=== PATIENT | male | born 1955 | race Caucasian/White ===

== ENCOUNTER 2021-10-28 09:28 | Emergency (ER) | payer MEDICARE, MEDICAID ==
[~2021-10-28] VITALS: Ht 175.3 cm; Wt 57.0 kg
[~2021-10-28 09:28] MED LIST: CHLO100T31 PO; CHOL100018 PO; CITA-144 PO; HYDR28.35 TP; PALI156D IM
[2021-10-28 10:03] LABS: BASOPHILS % (AUTO) 0.5 % (0.0-2.0); EOSINOPHILS % (AUTO) 2.5 % (1.0-6.0); HEMATOCRIT 36.4 % (41-53); HEMOGLOBIN 12.5 g/dL (13.5-17.5); LYMPHOCYTES # (AUTO) 0.9 K/uL (1.0-4.8); LYMPHOCYTES % (AUTO) 15.4 % (22.0-44.0); MEAN CORPUSCULAR HEMOGLOBIN 30.3 pg (26.0-34.0); MEAN CORPUSCULAR HGB CONC 34.2 G/dL (31.0-37.0); MEAN CORPUSCULAR VOLUME 89 fL (80-100); MONOCYTES # (AUTO) 0.6 K/uL (0.1-1.0); MONOCYTES % (AUTO) 10.6 % (2.0-9.0); NEUTROPHILS # (AUTO) 4.3 K/uL (1.8-7.7); PLATELET COUNT (AUTO) 407 K/uL (150-450); RED BLOOD CELL COUNT(AUTO) 4.12 MIL/uL (4.50-5.90); RED CELL DISTRIBUTION WIDTH 15.7 % (11.5-14.5)
[2021-10-28 10:22] LABS: ANION GAP 3 mmol/L (8-16); CARBON DIOXIDE 32 mmol/L (22-29); CHLORIDE 96 mmol/L (98-107); CREATININE 0.55 mg/dL (0.60-1.30); GLUCOSE,RANDOM 72 mg/dL (70-110); POTASSIUM 4.2 mmol/L (3.5-5.1); SODIUM SERUM 131 mmol/L (136-145); UREA NITROGEN, BLOOD 13 mg/dL (7-18)
[2021-10-28 10:24] LABS: GLOMERULAR FILTR. RATE CALC > 60 mL/min (>60)
[2021-10-28 10:28] LABS: ALANINE AMINOTRANSFERASE 32 U/L (12-78); ALBUMIN 2.9 g/dL (3.4-5.0); ALKALINE PHOSPHATASE 161 U/L (46-116); ASPARTATE AMINOTRANSFERASE 20 U/L (15-37); BILIRUBIN,TOTAL 0.3 mg/dL (0.1-1.0); TOTAL PROTEIN, SERUM 7.5 g/dL (6.4-8.2)
[2021-10-28 10:47] LABS: APPEARANCE,URINE CLEAR (CLEAR); BILIRUBIN,URINE NEGATIVE (NEGATIVE); GLUCOSE, URINE (UA) NEGATIVE (NEGATIVE); KETONES,URINE NEGATIVE (NEGATIVE); LEUKOCYTE ESTERASE ,URINE NEGATIVE (NEGATIVE); NITRATE,URINE NEGATIVE (NEGATIVE); OCCULT BLOOD,URINE NEGATIVE (NEGATIVE); PROTEIN,URINE NEGATIVE (NEGATIVE); UROBILINOGEN,URINE 0.2 mg/dL (<=1.0)
[2021-10-28] MEDS ORDERED: LORazepam 2 MG TABLET PO ONE (11:00)
[2021-10-28 11:50] LABS: AMPHET/METH SCREEN,URINE NEGATIVE (NEGATIVE); BARBITURATE SCREEN, URINE NEGATIVE (NEGATIVE); BENZODIAZEPINES SCREEN,URINE NEGATIVE (NEGATIVE); CANNABINOID SCREEN,URINE NEGATIVE (NEGATIVE); COCAINE SCREEN,URINE NEGATIVE (NEGATIVE); METHADONE SCREEN, URINE NEGATIVE (NEGATIVE); OPIATE SCREEN,URINE NEGATIVE (NEGATIVE)
[2021-10-28 11:51] LABS: PHENCYCLIDINE SCREEN,URINE NEGATIVE (NEGATIVE)
[2021-10-28 12:09] LABS: BACTERIA,URINE None Seen /HPF (None Seen); RBC,URINE None Seen /HPF (0-2); WBC,URINE None Seen /HPF (0-5)
[2021-10-28 13:53] VITALS: BP 127/68
== END 2021-10-28 14:43 | disposition home or self-care (01) ==
LOC: EMS 09:46
DX: F25.9 Schizoaffective disorder, unspecified (principal); R45.1 Restlessness and agitation; I10 Essential (primary) hypertension; F17.210 Nicotine dependence, cigarettes, uncomplicated; Z79.899 Other long term (current) drug therapy
CPT/HCPCS: 36415; 80053; 80307; 81001; 85025; 99284; G0480

== ENCOUNTER 2024-01-18 17:28 | Emergency (ER) | payer MEDICARE, MEDICAID ==
[~2024-01-18] VITALS: Ht 172.7 cm; Wt 65.9 kg
[~2024-01-18 17:28] MED LIST changes: -CHLO100T31 PO; +CHLO100T42 PO; -CHOL100018 PO; +CHOL25TA4 PO
[2024-01-18] MEDS ORDERED: LITH450CRT PO (18:06)
[2024-01-18] MEDS ORDERED: QUET25TA36 PO (18:06)
[2024-01-18] MEDS ORDERED: LEVO25TA9 PO (18:06)
[2024-01-18] MEDS ORDERED: LACT10SO10 PO (18:06)
[2024-01-18] MEDS ORDERED: OLAN20TA20 PO (18:06)
[2024-01-18] MEDS ORDERED: LUMA42CA PO (18:06)
[2024-01-18] MEDS ORDERED: CLON0.5T4 PO (18:06)
[2024-01-18] MEDS ORDERED: VALP250S27 PO (18:06)
[2024-01-18] MEDS ORDERED: LISI10TA24 PO (18:06)
[2024-01-18 18:09] VITALS: TEMP 97.7
[2024-01-18 18:58] LABS: ALCOHOL, URINE DRUG SCREEN NEGATIVE (NEGATIVE); AMPHET/METH SCREEN,URINE NEGATIVE (NEGATIVE); APPEARANCE,URINE CLEAR (CLEAR); BARBITURATE SCREEN, URINE NEGATIVE (NEGATIVE); BENZODIAZEPINES SCREEN,URINE NEGATIVE (NEGATIVE); BILIRUBIN,URINE NEGATIVE (NEGATIVE); CANNABINOID SCREEN,URINE NEGATIVE (NEGATIVE); COCAINE SCREEN,URINE NEGATIVE (NEGATIVE); COLOR,URINE LIGHT YELLOW (YELLOW); GLUCOSE, URINE (UA) NEGATIVE (NEGATIVE); KETONES,URINE NEGATIVE (NEGATIVE); LEUKOCYTE ESTERASE ,URINE NEGATIVE (NEGATIVE); METHADONE SCREEN, URINE NEGATIVE (NEGATIVE); NITRATE,URINE NEGATIVE (NEGATIVE); OCCULT BLOOD,URINE NEGATIVE (NEGATIVE); OPIATE SCREEN,URINE NEGATIVE (NEGATIVE); PH,URINE 7.5 (5.0-8.0); PHENCYCLIDINE SCREEN,URINE NEGATIVE (NEGATIVE); PROTEIN,URINE NEGATIVE (NEGATIVE); SPECIFIC GRAVITIY, URINE 1.009 (1.003-1.030); UROBILINOGEN,URINE <=1.0 mg/dL (<=1.0)
[2024-01-18 19:10] LABS: PH,URINE DRUG SCREEN 7.5 (5.0-8.0)
[2024-01-18 19:21] LABS: COVID AG,FIA SOURCE NASAL SWAB
[2024-01-18 19:44] LABS: SARS-COV2 (COVID) ANTIGEN,FIA Negative (Negative)
[2024-01-18 20:36] LABS: BASOPHILS % (AUTO) 0.2 % (0.0-2.0); EOSINOPHILS % (AUTO) 4.2 % (1.0-6.0); HEMATOCRIT 41.1 % (41-53); HEMOGLOBIN 13.5 g/dL (13.5-17.5); LYMPHOCYTES # (AUTO) 1.3 K/uL (1.0-4.8); LYMPHOCYTES % (AUTO) 19.6 % (22.0-44.0); MEAN CORPUSCULAR HEMOGLOBIN 31.5 pg (26.0-34.0); MEAN CORPUSCULAR HGB CONC 32.8 G/dL (31.0-37.0); MEAN CORPUSCULAR VOLUME 96 fL (80-100); MONOCYTES # (AUTO) 0.5 K/uL (0.1-1.0); MONOCYTES % (AUTO) 7.1 % (2.0-9.0); NEUTROPHILS # (AUTO) 4.6 K/uL (1.8-7.7); NEUTROPHILS % (AUTO) 68.9 % (40.0-70.0); PLATELET COUNT (AUTO) 164 K/uL (150-450); RED BLOOD CELL COUNT(AUTO) 4.28 MIL/uL (4.50-5.90); RED CELL DISTRIBUTION WIDTH 14.1 % (11.5-14.5); WHITE BLOOD COUNT (AUTO) 6.7 K/uL (4.5-11.0)
[2024-01-18 20:44] LABS: ANION GAP 6 mmol/L (8-16); CALCIUM, TOTAL 9.3 mg/dL (8.8-10.5); CARBON DIOXIDE 29 mmol/L (22-29); CHLORIDE 102 mmol/L (98-107); GLOMERULAR FILTR. RATE CALC > 60 mL/min (>60); GLUCOSE,RANDOM 92 mg/dL (70-110); POTASSIUM 4.2 mmol/L (3.5-5.1); SODIUM SERUM 137 mmol/L (136-145); UREA NITROGEN, BLOOD 6 mg/dL (7-18)
[2024-01-18 20:50] LABS: ALANINE AMINOTRANSFERASE 19 U/L (12-78); ALBUMIN 3.3 g/dL (3.4-5.0); ALKALINE PHOSPHATASE 100 U/L (46-116); ASPARTATE AMINOTRANSFERASE 21 U/L (15-37); BILIRUBIN,TOTAL 0.3 mg/dL (0.1-1.0); TOTAL PROTEIN, SERUM 7.5 g/dL (6.4-8.2)
[2024-01-18 20:57] LABS: ALCOHOL, BLOOD (SERUM) < 3 mg/dL (0-10)
[2024-01-18 21:53] VITALS: BP 154/79; PULSE 84; RESP 16
== END 2024-01-18 23:15 | disposition home or self-care (01) ==
LOC: EMS 17:28
DX: F69 Unspecified disorder of adult personality and behavior (principal); R45.1 Restlessness and agitation; F41.9 Anxiety disorder, unspecified; I10 Essential (primary) hypertension; F20.9 Schizophrenia, unspecified; F17.210 Nicotine dependence, cigarettes, uncomplicated; Z20.822 Contact with and (suspected) exposure to COVID-19
CPT/HCPCS: 99284; 87426; 80053; 81003; 85025; 36415; 73090; 80307; G0480

== ENCOUNTER 2024-01-19 09:35 | Inpatient (IN) | payer MEDICARE, MEDICAID ==
[~2024-01-19] VITALS: Ht 165.1 cm; Wt 75.0 kg
[~2024-01-19 09:35] MED LIST changes: +CLON0.5T4 PO; +LACT10SO10 PO; +LEVO25TA9 PO; +LISI10TA24 PO; +LITH450CRT PO; +LUMA42CA PO; +OLAN20TA20 PO; +QUET25TA36 PO; +VALP250S27 PO
[2024-01-19 10:45] LABS: PH,URINE DRUG SCREEN 7.5 (5.0-8.0)
[2024-01-19] MEDS: DiphenhydrAMINE HCL 50 MG/ML VIAL IM ONE (10:46)
[2024-01-19] MEDS: LORazepam 2 MG/ML VIAL IM ONE (10:46)
[2024-01-19] MEDS: HALOPERIDOL LACTATE 5 MG/ML VIAL IM ONE (10:47)
[2024-01-19 10:52] LABS: ALCOHOL, URINE DRUG SCREEN NEGATIVE (NEGATIVE); AMPHET/METH SCREEN,URINE NEGATIVE (NEGATIVE); BARBITURATE SCREEN, URINE NEGATIVE (NEGATIVE); BENZODIAZEPINES SCREEN,URINE NEGATIVE (NEGATIVE); CANNABINOID SCREEN,URINE NEGATIVE (NEGATIVE); COCAINE SCREEN,URINE NEGATIVE (NEGATIVE); METHADONE SCREEN, URINE NEGATIVE (NEGATIVE); OPIATE SCREEN,URINE NEGATIVE (NEGATIVE); PHENCYCLIDINE SCREEN,URINE NEGATIVE (NEGATIVE)
[2024-01-19 12:28] LABS: COVID AG,FIA SOURCE NASAL SWAB
[2024-01-19 12:41] LABS: SARS-COV2 (COVID) ANTIGEN,FIA Negative (Negative)
[2024-01-19 15:11] LABS: BASOPHILS % (AUTO) 0.2 % (0.0-2.0); EOSINOPHILS % (AUTO) 5.6 % (1.0-6.0); HEMATOCRIT 38.3 % (41-53); HEMOGLOBIN 12.6 g/dL (13.5-17.5); LYMPHOCYTES # (AUTO) 1.1 K/uL (1.0-4.8); LYMPHOCYTES % (AUTO) 13.7 % (22.0-44.0); MEAN CORPUSCULAR HEMOGLOBIN 31.5 pg (26.0-34.0); MEAN CORPUSCULAR VOLUME 96 fL (80-100); MONOCYTES # (AUTO) 0.8 K/uL (0.1-1.0); MONOCYTES % (AUTO) 10.7 % (2.0-9.0); NEUTROPHILS # (AUTO) 5.5 K/uL (1.8-7.7); NEUTROPHILS % (AUTO) 69.8 % (40.0-70.0); PLATELET COUNT (AUTO) 167 K/uL (150-450); RED BLOOD CELL COUNT(AUTO) 4.01 MIL/uL (4.50-5.90); RED CELL DISTRIBUTION WIDTH 14.1 % (11.5-14.5); WHITE BLOOD COUNT (AUTO) 7.8 K/uL (4.5-11.0)
[2024-01-19 15:21] LABS: ANION GAP 6 mmol/L (8-16); CALCIUM, TOTAL 9.3 mg/dL (8.8-10.5); CARBON DIOXIDE 30 mmol/L (22-29); CHLORIDE 101 mmol/L (98-107); CREATININE 0.59 mg/dL (0.60-1.30); GLOMERULAR FILTR. RATE CALC > 60 mL/min (>60); GLUCOSE,RANDOM 85 mg/dL (70-110); POTASSIUM 4.1 mmol/L (3.5-5.1); SODIUM SERUM 137 mmol/L (136-145); UREA NITROGEN, BLOOD 8 mg/dL (7-18)
[2024-01-19 15:23] LABS: ALANINE AMINOTRANSFERASE 20 U/L (12-78); ALBUMIN 3.2 g/dL (3.4-5.0); ALKALINE PHOSPHATASE 93 U/L (46-116); ASPARTATE AMINOTRANSFERASE 33 U/L (15-37); BILIRUBIN,TOTAL 0.4 mg/dL (0.1-1.0); TOTAL PROTEIN, SERUM 7.5 g/dL (6.4-8.2)
[2024-01-19] MEDS: LORazepam 2 MG TABLET PO PRN (19:55)
[2024-01-19] MEDS: HALOPERIDOL 5 MG TABLET PO PRN (19:55)
[2024-01-19 21:30] VITALS: BP 145/82; PULSE 87; RESP 18; TEMP 97.5
[2024-01-19] MEDS: ZOLPIDEM TARTRATE 10 MG TABLET PO PRN (21:50)
[2024-01-20] MEDS ORDERED: INFLUENZA VIRUS VACCINE QVS 2023-24 (6MO+)/PF 60 MCG/0.5 ML SYRINGE IM. ONE (02:45)
[2024-01-20] MEDS: DiphenhydrAMINE HCL 50 MG/ML VIAL IM ONE (04:28)
[2024-01-20] MEDS: HALOPERIDOL LACTATE 5 MG/ML VIAL IM ONE (04:29)
[2024-01-20] MEDS: PERTUSS(ACELL),DIPH,TET/PF 0.5 ML SYRINGE [ADULT] IM. ONE (05:57)
[2024-01-20] MEDS ORDERED: MIDAZOLAM HCL 2 MG/2 ML VIAL IVP ONE (06:00)
[2024-01-20] MEDS: MIDAZOLAM HCL 2 MG/2 ML VIAL IM ONE (06:52)
[2024-01-20] MEDS: VALPROIC ACID 250 MG CAPSULE PO SCH (13:00)
[2024-01-20] MEDS: CITALOPRAM HYDROBROMIDE 20 MG TABLET PO SCH (15:30)
[2024-01-20] MEDS: ChlorproMAZINE HCL 100 MG TABLET PO SCH (15:31)
[2024-01-20] MEDS: LEVOTHYROXINE SODIUM 25 MCG TABLET PO SCH (15:31)
[2024-01-20] MEDS: LITHIUM CARBONATE 450 MG ER TABLET PO SCH (15:34)
[2024-01-20] MEDS: SODIUM CHLORIDE 1 GM TABLET PO SCH (15:34)
[2024-01-20] MEDS ORDERED: LOPERAMIDE HCL 2 MG CAPSULE PO PRN ×2 (16:45)
[2024-01-20] MEDS ORDERED: PETROLATUM,WHITE 28 GM JELLY TP PRN ×2 (16:45)
[2024-01-20] MEDS ORDERED: MAG HYDROX/ALUMINUM HYD/SIMETH ES 30 ML SUSPENSION UDCUP PO PRN ×2 (16:45)
[2024-01-20] MEDS ORDERED: ACETAMINOPHEN 325 MG TABLET PO PRN ×2 (16:45)
[2024-01-20] MEDS ORDERED: ONDANSETRON HCL 4 MG TABLET PO PRN ×2 (16:45)
[2024-01-20] MEDS ORDERED: MAGNESIUM HYDROXIDE SUSPENSION 30 ML UDCUP PO PRN ×2 (16:45)
[2024-01-20] MEDS ORDERED: ALBUTEROL SULFATE HFA 90 MCG/PUFF 8 GM INHALER IH PRN ×2 (16:45)
[2024-01-20] MEDS ORDERED: CloNIDine HCL 0.1 MG TABLET PO PRN ×2 (16:45)
[2024-01-20] MEDS ORDERED: IBUPROFEN 400 MG TABLET PO PRN ×2 (16:45)
[2024-01-20] MEDS ORDERED: DOCUSATE SODIUM 100 MG CAPSULE PO PRN ×2 (16:45)
[2024-01-20] MEDS ORDERED: GuaiFENesin/D-METHORPHAN [SUGAR-FREE] 200-20MG/10 ML SYRUP UDCUP PO PRN ×2 (16:45)
[2024-01-20] MEDS ORDERED: NICOTINE 14 MG/24 HOUR PATCH TD PRN ×2 (16:45)
[2024-01-20] MEDS: VALPROIC ACID 250 MG/5 ML SOLUTION UDCUP PO SCH (18:46)
[2024-01-20] MEDS: ClonazePAM 0.5 MG TABLET PO SCH (21:02)
[2024-01-20] MEDS: OLANZapine 10 MG TABLET PO SCH (21:02)
[2024-01-20 21:39] VITALS: RESP 18; TEMP 97.6
[2024-01-21] MEDS: LISINOPRIL 10 MG TABLET PO SCH (09:00)
[2024-01-21] MEDS: CHOLECALCIFEROL (VIT D3) 1,000 UNITS [25 MCG] TABLET PO SCH (10:53)
[2024-01-21] MEDS: LACTULOSE 20 GM/30 ML SOLUTION UDCUP PO SCH (10:53)
[2024-01-21 12:36] VITALS: BP 86/41; PULSE 76; RESP 17; TEMP 97.8
[2024-01-21 14:23] VITALS: BP 90/52; PULSE 74; RESP 18; TEMP 97.6
[2024-01-21] MEDS: TraMADol HCL 50 MG TABLET PO PRN (14:23)
[2024-01-21 15:23] VITALS: BP 94/54; PULSE 68; RESP 18; TEMP 97.2
[2024-01-21 21:10] VITALS: RESP 18
[2024-01-22] VITALS (7 sets, daily range): BP systolic 70–88; BP diastolic 40–58; PULSE 72–86; RESP 12–18; TEMP 97.4–98.1
[2024-01-22 08:19] LABS: BASOPHILS % (AUTO) 0.1 % (0.0-2.0); EOSINOPHILS % (AUTO) 0.1 % (1.0-6.0); HEMATOCRIT 26.2 % (41-53); HEMOGLOBIN 8.6 g/dL (13.5-17.5); LYMPHOCYTES # (AUTO) 0.6 K/uL (1.0-4.8); LYMPHOCYTES % (AUTO) 3.8 % (22.0-44.0); MEAN CORPUSCULAR HEMOGLOBIN 32.3 pg (26.0-34.0); MEAN CORPUSCULAR HGB CONC 32.9 G/dL (31.0-37.0); MEAN CORPUSCULAR VOLUME 98 fL (80-100); MONOCYTES # (AUTO) 2.7 K/uL (0.1-1.0); MONOCYTES % (AUTO) 17.2 % (2.0-9.0); NEUTROPHILS # (AUTO) 12.3 K/uL (1.8-7.7); NEUTROPHILS % (AUTO) 78.8 % (40.0-70.0); PLATELET COUNT (AUTO) 148 K/uL (150-450); RED BLOOD CELL COUNT(AUTO) 2.67 MIL/uL (4.50-5.90); RED CELL DISTRIBUTION WIDTH 15.6 % (11.5-14.5); WHITE BLOOD COUNT (AUTO) 15.7 K/uL (4.5-11.0)
[2024-01-22 08:36] LABS: HEMOGLOBIN A1C 5.6 % (3.8-5.6)
[2024-01-22 09:29] LABS: ALBUMIN 2.6 g/dL (3.4-5.0); BILIRUBIN,TOTAL 0.5 mg/dL (0.1-1.0); CALCIUM, TOTAL 8.2 mg/dL (8.8-10.5); CHOL/HDL RATIO 2.7 (4.2-7.3); CREATININE 3.14 mg/dL (0.60-1.30); POTASSIUM 3.9 mmol/L (3.5-5.1); THYROID STIMULATING HORMONE 64.15 uIU/mL (0.36-3.74)
[2024-01-22] MEDS ORDERED: TraMADol HCL 50 MG TABLET PO PRN (09:30)
[2024-01-22] MEDS ORDERED: GADOTERATE MEGLUMINE 10 MMOL/20 ML VIAL IVP ONE (09:39)
[2024-01-22] MEDS ORDERED: LORazepam 2 MG/ML VIAL IM ONE (10:00)
[2024-01-22 11:05] LABS: GLUCOMETER DEV NAME(LOC) 3EX.2; GLUCOSE,POINT OF CARE 140 MG/DL (70-110)
[2024-01-22 11:15] LABS: ABG BASE EXCESS 0.2 mmol/L (-2.0-3.0); ABG CARBOXYHEMOGLOBIN 0.4 % (0.0-1.5); ABG HCO3 24.7 mmol/L (22.0-26.0); ABG METHEMOGLOBIN 0.1 % (0.0-1.5); ABG OXYGEN CONTENT 12.1 mL/dL (15.0-23.0); ABG OXYGEN SATURATION 96.1 % (95.0-98.0); ABG OXYHEMOGLOBIN 95.6 % (94.0-100.0); ABG PCO2 39 mmHg (35-45); ABG PH 7.418 (7.35-7.450); ABG TOTAL HEMOGLOBIN 8.9 G/dL (12.0-18.0); SOURCE, BLOOD GAS ARTERIAL; TEMPERATURE, FAHRENHEIT, BG 97.9 FAHREN (96.0-98.6)
[2024-01-22 11:16] LABS: ALLEN TEST, BLOOD GAS POS; O2 DEVICE,BLOOD GAS NC (ROOM AIR); SITE, BLOOD GAS LFT BRACHIAL
[2024-01-22] MEDS ORDERED: LITHIUM CARBONATE 300 MG ER TABLET PO SCH (17:00)
== END 2024-01-22 12:20 | disposition short-term general hospital (02) | DRG 885 ==
LOC: EMS 09:35 → 3EC 15:55 → 5S 01-22 13:05
PROVIDERS: ADMIT Psychiatry & Neurology Child & Adolescent Psychiatry; ATTEND Psychiatry & Neurology Child & Adolescent Psychiatry
PROC: 2W38X1Z Immobilization of Right Upper Extremity using Splint (ICD-10-PCS; principal; 2024-01-20)
DX: F25.9 Schizoaffective disorder, unspecified (principal); S52.501A Unspecified fracture of the lower end of right radius, initial encounter for closed fracture; S42.301A Unspecified fracture of shaft of humerus, right arm, initial encounter for closed fracture; S52.201A Unspecified fracture of shaft of right ulna, initial encounter for closed fracture; F31.9 Bipolar disorder, unspecified; I10 Essential (primary) hypertension; E03.9 Hypothyroidism, unspecified; E55.9 Vitamin D deficiency, unspecified; Z20.822 Contact with and (suspected) exposure to COVID-19; F41.9 Anxiety disorder, unspecified; W18.39XA Other fall on same level, initial encounter; Y93.89 Activity, other specified; Z87.891 Personal history of nicotine dependence; Y92.89 Other specified places as the place of occurrence of the external cause; Y99.8 Other external cause status
CPT/HCPCS: 29240; 36600; 70150; 70450; 71045; 73200; 80053; 80061; 80164; 80178; 80307; 82805; 82962; 83036; 84443; 85025; 87081; 90715; 92610; 99285; G0480; J1200; J1630; J2060; J2250; 36415-L1; 36415-TC

== ENCOUNTER 2024-01-27 23:09 | Inpatient (IN) | payer MEDICARE, MEDICAID ==
[~2024-01-27 23:09] MED LIST changes: -CHLO100T42 PO; -CITA-144 PO; -HYDR28.35 TP; -PALI156D IM
[2024-01-28] VITALS (8 sets, daily range): BP systolic 92–121; BP diastolic 40–87; PULSE 66–81; RESP 17–18; TEMP 97.5–98.4
[2024-01-28] MEDS ORDERED: ONDANSETRON HCL 4 MG/2 ML VIAL IVP PRN
[2024-01-28] MEDS ORDERED: HALOPERIDOL LACTATE 5 MG/ML VIAL IM ONE (01:45)
[2024-01-28] MEDS: HEPARIN SODIUM,PORCINE 5,000 UNITS/ML VIAL SQ SCH (02:28)
[2024-01-28] MEDS: SODIUM CHLORIDE 0.9% 1,000 ML IV ONE (02:29)
[2024-01-28 02:30] LABS: BASOPHILS % (AUTO) 0.3 % (0.0-2.0); EOSINOPHILS % (AUTO) 5.6 % (1.0-6.0); HEMATOCRIT 26.6 % (41-53); HEMOGLOBIN 8.7 g/dL (13.5-17.5); LYMPHOCYTES # (AUTO) 1.5 K/uL (1.0-4.8); LYMPHOCYTES % (AUTO) 14.4 % (22.0-44.0); MEAN CORPUSCULAR HEMOGLOBIN 32.4 pg (26.0-34.0); MEAN CORPUSCULAR HGB CONC 32.6 G/dL (31.0-37.0); MEAN CORPUSCULAR VOLUME 100 fL (80-100); MONOCYTES # (AUTO) 1.2 K/uL (0.1-1.0); MONOCYTES % (AUTO) 11.7 % (2.0-9.0); NEUTROPHILS # (AUTO) 7.2 K/uL (1.8-7.7); PLATELET COUNT (AUTO) 479 K/uL (150-450); RED BLOOD CELL COUNT(AUTO) 2.67 MIL/uL (4.50-5.90); RED CELL DISTRIBUTION WIDTH 17.5 % (11.5-14.5); WHITE BLOOD COUNT (AUTO) 10.6 K/uL (4.5-11.0)
[2024-01-28 02:42] LABS: TROPONIN I-HIGH SENSITIVITY 5 ng/L (<76)
[2024-01-28 02:45] LABS: AMMONIA < 10 umol/L (11-32)
[2024-01-28 02:49] LABS: ALANINE AMINOTRANSFERASE 26 U/L (12-78); ALBUMIN 2.2 g/dL (3.4-5.0); ALKALINE PHOSPHATASE 72 U/L (46-116); ASPARTATE AMINOTRANSFERASE 18 U/L (15-37); BILIRUBIN,TOTAL 0.7 mg/dL (0.1-1.0); CALCIUM, TOTAL 8.4 mg/dL (8.8-10.5); CHLORIDE 110 mmol/L (98-107); CREATININE 0.88 mg/dL (0.60-1.30); FREE T4 (FREE THYROXINE) 0.36 ng/dL (0.76-1.46); GLOMERULAR FILTR. RATE CALC > 60 mL/min (>60); GLUCOSE,RANDOM 111 mg/dL (70-110); LIPASE 27 U/L (16-77); POTASSIUM 4.1 mmol/L (3.5-5.1); SODIUM SERUM 142 mmol/L (136-145); THYROID STIMULATING HORMONE 73.72 uIU/mL (0.36-3.74); UREA NITROGEN, BLOOD 18 mg/dL (7-18)
[2024-01-28 02:58] LABS: ANION GAP 1 mmol/L (8-16); CARBON DIOXIDE 31 mmol/L (22-29)
[2024-01-28] MEDS: BISACODYL 10 MG RECTAL RECTAL SUPPOSITORY PR ONE (03:15)
[2024-01-28] MEDS: HYDROCORTISONE SOD SUCC 100 MG/2 ML VIAL IVP ONE (04:58)
[2024-01-28] MEDS: LEVOTHYROXINE SODIUM 100 MCG VIAL IVP ONE (04:58)
[2024-01-28] MEDS ORDERED: LEVOTHYROXINE SODIUM 25 MCG TABLET PO SCH (06:30)
[2024-01-28] MEDS: LEVOTHYROXINE SODIUM 25 MCG TABLET PO SCH (06:38)
[2024-01-28] MEDS ORDERED: [UNRECOGNIZED DRUG - OTHER] PO SCH (09:00)
[2024-01-28] MEDS: DOCUSATE SODIUM 100 MG CAPSULE PO SCH (10:03)
[2024-01-28] MEDS: LITHIUM CARBONATE 450 MG ER TABLET PO SCH (10:03)
[2024-01-28] MEDS: ClonazePAM 0.5 MG TABLET PO SCH (10:03)
[2024-01-28] MEDS: LACTULOSE 20 GM/30 ML SOLUTION UDCUP PO SCH (10:03)
[2024-01-28] MEDS ORDERED: IOHEXOL 350 MG/ML 100 ML VIAL ONE (11:22)
[2024-01-28] MEDS ORDERED: SODIUM CHLORIDE 0.9% 100 ML ONE (11:22)
[2024-01-28 12:04] LABS: BASOPHILS % (AUTO) 0.1 % (0.0-2.0); EOSINOPHILS % (AUTO) 0.3 % (1.0-6.0); HEMATOCRIT 24.4 % (41-53); HEMOGLOBIN 8.1 g/dL (13.5-17.5); LYMPHOCYTES # (AUTO) 0.7 K/uL (1.0-4.8); LYMPHOCYTES % (AUTO) 6.2 % (22.0-44.0); MEAN CORPUSCULAR HEMOGLOBIN 33.1 pg (26.0-34.0); MEAN CORPUSCULAR HGB CONC 33.2 G/dL (31.0-37.0); MEAN CORPUSCULAR VOLUME 100 fL (80-100); MONOCYTES # (AUTO) 0.4 K/uL (0.1-1.0); MONOCYTES % (AUTO) 3.5 % (2.0-9.0); NEUTROPHILS # (AUTO) 9.8 K/uL (1.8-7.7); PLATELET COUNT (AUTO) 460 K/uL (150-450); RED BLOOD CELL COUNT(AUTO) 2.44 MIL/uL (4.50-5.90); RED CELL DISTRIBUTION WIDTH 16.4 % (11.5-14.5); WHITE BLOOD COUNT (AUTO) 10.9 K/uL (4.5-11.0)
[2024-01-28 12:16] LABS: NEUTROPHILS % (AUTO) 89.9 % (40.0-70.0)
[2024-01-28] MEDS: OLANZapine 10 MG RAPDIS TABLET PO SCH (22:36)
[2024-01-29 04:31] VITALS: BP 131/60; PULSE 70; RESP 18; TEMP 98
[2024-01-29 07:38] VITALS: BP 129/66; PULSE 67; RESP 18; TEMP 98
[2024-01-29 10:35] VITALS: BP 114/56; PULSE 66; RESP 18; TEMP 97.9
[2024-01-29 19:42] VITALS: BP 130/69; PULSE 72; RESP 19; TEMP 98.1
[2024-01-30 00:28] VITALS: BP 114/68; PULSE 61; RESP 18; TEMP 97.8
[2024-01-30 04:20] VITALS: BP 128/69; PULSE 76; RESP 19; TEMP 97.7
[2024-01-30 07:51] VITALS: BP 119/65; PULSE 69; RESP 19; TEMP 98
[2024-01-30] MEDS: LEVOTHYROXINE SODIUM 50 MCG TABLET PO SCH (08:05)
[2024-01-30 12:12] VITALS: BP 133/67; PULSE 63; RESP 18; TEMP 97.7
[2024-01-30 17:55] VITALS: BP 129/59; PULSE 56; RESP 19; TEMP 97.6
[2024-01-30 20:00] VITALS: BP 111/56; PULSE 70; RESP 16; TEMP 97.3
[2024-01-31] VITALS: BP 102/63; PULSE 62; RESP 18; TEMP 97.6
[2024-01-31] MEDS: ACETAMINOPHEN 325 MG TABLET PO PRN (01:29)
[2024-01-31 04:00] VITALS: BP 125/65; PULSE 62; RESP 20; TEMP 97.5
[2024-01-31 07:31] VITALS: BP 109/67; PULSE 57; RESP 20; TEMP 97.4
[2024-01-31 11:00] VITALS: BP 116/57; PULSE 73; RESP 20; TEMP 97.4
[2024-01-31 15:30] VITALS: BP 110/67; PULSE 73; RESP 20; TEMP 97.5
[2024-01-31 19:23] VITALS: BP 104/59; PULSE 70; RESP 20; TEMP 97.6
[2024-02-01 01:04] VITALS: BP 130/69; PULSE 64; RESP 18; TEMP 97.5
[2024-02-01 05:44] VITALS: BP 132/68; PULSE 63; RESP 18; TEMP 97.6
[2024-02-01 08:39] VITALS: BP 113/68; PULSE 65; RESP 18; TEMP 97.9
[2024-02-01 15:32] VITALS: BP 120/70; PULSE 72; RESP 18; TEMP 97.7
[2024-02-01 20:09] VITALS: BP 106/58; PULSE 72; RESP 19; TEMP 98.3
[2024-02-01 23:05] VITALS: BP 116/63; PULSE 71; RESP 18; TEMP 97.8
[2024-02-02 03:50] VITALS: BP 116/62; PULSE 66; RESP 18; TEMP 97.8
[2024-02-02 08:06] VITALS: BP 109/64; PULSE 64; RESP 18; TEMP 97.8
[2024-02-02 16:20] VITALS: BP 114/61; PULSE 67; RESP 18; TEMP 98.1
== END 2024-02-02 18:06 | DRG 315 ==
LOC: 5N 23:24 → 5S 01-30 21:30 → 6N 02-01 22:58
PROVIDERS: ADMIT Internal Medicine; ATTEND Internal Medicine
DX: I95.9 Hypotension, unspecified (principal); E44.0 Moderate protein-calorie malnutrition; D50.9 Iron deficiency anemia, unspecified; E87.8 Other disorders of electrolyte and fluid balance, not elsewhere classified; F20.9 Schizophrenia, unspecified; R00.0 Tachycardia, unspecified; I10 Essential (primary) hypertension
CPT/HCPCS: 80053; 80178; 82140; 82271; 83690; 83735; 84439; 84443; 84484; 85025; 85045; 85379; 92610; 93970; J1644; J1720; J3490; J7030; J7050; Q9967

== ENCOUNTER 2024-02-03 14:11 | Emergency (ER) | payer MEDICARE, MEDICAID ==
[~2024-02-03] VITALS: Ht 167.6 cm; Wt 57.0 kg
[2024-02-03 15:46] VITALS: TEMP 97.9
[2024-02-03] MEDS: LORazepam 1 MG TABLET PO ONE (16:50)
[2024-02-03 17:24] LABS: APPEARANCE,URINE CLEAR (CLEAR); BILIRUBIN,URINE NEGATIVE (NEGATIVE); COLOR,URINE LIGHT YELLOW (YELLOW); GLUCOSE, URINE (UA) NEGATIVE (NEGATIVE); KETONES,URINE NEGATIVE (NEGATIVE); LEUKOCYTE ESTERASE ,URINE NEGATIVE (NEGATIVE); NITRATE,URINE NEGATIVE (NEGATIVE); OCCULT BLOOD,URINE NEGATIVE (NEGATIVE); PH,URINE 6.5 (5.0-8.0); PH,URINE DRUG SCREEN 6.5 (5.0-8.0); PROTEIN,URINE NEGATIVE (NEGATIVE); SPECIFIC GRAVITIY, URINE 1.005 (1.003-1.030); UROBILINOGEN,URINE <=1.0 mg/dL (<=1.0)
[2024-02-03 17:32] LABS: ALCOHOL, URINE DRUG SCREEN NEGATIVE (NEGATIVE); AMPHET/METH SCREEN,URINE NEGATIVE (NEGATIVE); BARBITURATE SCREEN, URINE NEGATIVE (NEGATIVE); BENZODIAZEPINES SCREEN,URINE NEGATIVE (NEGATIVE); CANNABINOID SCREEN,URINE NEGATIVE (NEGATIVE); COCAINE SCREEN,URINE NEGATIVE (NEGATIVE); METHADONE SCREEN, URINE NEGATIVE (NEGATIVE); OPIATE SCREEN,URINE NEGATIVE (NEGATIVE); PHENCYCLIDINE SCREEN,URINE NEGATIVE (NEGATIVE)
[2024-02-03 18:30] VITALS: BP 136/72; PULSE 78; RESP 20
[2024-02-03 23:15] LABS: COVID AG,FIA SOURCE NASAL SWAB
[2024-02-03 23:38] LABS: SARS-COV2 (COVID) ANTIGEN,FIA Negative (Negative)
[2024-02-13] MEDS ORDERED: HEPA500018 SQ (11:31)
[2024-02-13] MEDS ORDERED: FAMO20 PO (11:31)
[2024-02-13] MEDS ORDERED: OLAN7.5T22 PO (11:32)
[2024-02-13] MEDS ORDERED: MULT-248 PO (11:32)
[2024-02-13] MEDS ORDERED: ACET-2247 PO (11:34)
[2024-02-13] MEDS ORDERED: BENZ-227 PO (11:38)
[2024-02-13] MEDS ORDERED: BISM-157 PO (11:39)
[2024-02-13] MEDS ORDERED: MAGN-169 PO (11:39)
== END 2024-02-04 00:44 | disposition home or self-care (01) ==
LOC: EMS 14:33
DX: F20.9 Schizophrenia, unspecified (principal); F41.9 Anxiety disorder, unspecified; I10 Essential (primary) hypertension; F17.210 Nicotine dependence, cigarettes, uncomplicated; Z20.822 Contact with and (suspected) exposure to COVID-19
CPT/HCPCS: 80307; 81003; 99285

== ENCOUNTER 2024-09-21 11:39 | Inpatient (IN) | payer MEDICARE, MEDICAID ==
[~2024-09-21] VITALS: Ht 175.3 cm; Wt 62.1 kg
[~2024-09-21 11:39] MED LIST changes: +ACET-2247 PO; +BENZ-227 PO; +BISM-157 PO; +FAMO20 PO; +HEPA500018 SQ; -LITH450CRT PO; +LITH450T25 PO; +MAGN-169 PO; +MULT-248 PO; +OLAN7.5T22 PO
[2024-09-21 12:00] LABS: EOSINOPHILS % (AUTO) 6.9 % (1.0-6.0); HEMATOCRIT 38.1 % (41-53); HEMOGLOBIN 12.5 g/dL (13.5-17.5); LYMPHOCYTES # (AUTO) 1.2 K/uL (1.0-4.8); LYMPHOCYTES % (AUTO) 24.8 % (22.0-44.0); MEAN CORPUSCULAR HEMOGLOBIN 31.7 pg (26.0-34.0); MEAN CORPUSCULAR HGB CONC 32.8 G/dL (31.0-37.0); MEAN CORPUSCULAR VOLUME 97 fL (80-100); MONOCYTES # (AUTO) 0.6 K/uL (0.1-1.0); MONOCYTES % (AUTO) 11.1 % (2.0-9.0); NEUTROPHILS # (AUTO) 2.8 K/uL (1.8-7.7); NEUTROPHILS % (AUTO) 56.2 % (40.0-70.0); PLATELET COUNT (AUTO) 378 K/uL (150-450); RED BLOOD CELL COUNT(AUTO) 3.94 MIL/uL (4.50-5.90); RED CELL DISTRIBUTION WIDTH 12.8 % (11.5-14.5)
[2024-09-21] MEDS ORDERED: OLAN10TA74 PO (12:03)
[2024-09-21] MEDS ORDERED: FAMO20TA8 PO (12:03)
[2024-09-21 12:11] LABS: ANION GAP 6 mmol/L (8-16); CALCIUM, TOTAL 9.4 mg/dL (8.8-10.5); CARBON DIOXIDE 27 mmol/L (22-29); CHLORIDE 95 mmol/L (98-107); CREATININE 0.72 mg/dL (0.60-1.30); GLOMERULAR FILTR. RATE CALC > 60 mL/min (>60); GLUCOSE,RANDOM 135 mg/dL (70-110); POTASSIUM 4.6 mmol/L (3.5-5.1); SODIUM SERUM 128 mmol/L (136-145); UREA NITROGEN, BLOOD 19 mg/dL (7-18)
[2024-09-21 12:18] LABS: ALCOHOL, BLOOD (SERUM) < 3 mg/dL (0-10)
[2024-09-21 12:39] LABS: AMPHET/METH SCREEN,URINE NEGATIVE (NEGATIVE); BARBITURATE SCREEN, URINE NEGATIVE (NEGATIVE); BENZODIAZEPINES SCREEN,URINE NEGATIVE (NEGATIVE); CANNABINOID SCREEN,URINE NEGATIVE (NEGATIVE); COCAINE SCREEN,URINE NEGATIVE (NEGATIVE); METHADONE SCREEN, URINE NEGATIVE (NEGATIVE); OPIATE SCREEN,URINE NEGATIVE (NEGATIVE); PHENCYCLIDINE SCREEN,URINE NEGATIVE (NEGATIVE)
[2024-09-21 12:45] LABS: ALCOHOL, URINE DRUG SCREEN NEGATIVE (NEGATIVE)
[2024-09-21] MEDS ORDERED: LORazepam 2 MG TABLET PO PRN (12:45)
[2024-09-21] MEDS ORDERED: ZOLPIDEM TARTRATE 10 MG TABLET PO PRN (12:45)
[2024-09-21] MEDS ORDERED: HALOPERIDOL 5 MG TABLET PO PRN (12:45)
[2024-09-21] MEDS: HALOPERIDOL 5 MG TABLET PO PRN (15:51)
[2024-09-21] MEDS: LORazepam 2 MG TABLET PO PRN (15:51)
[2024-09-21 16:14] LABS: COVID AG,FIA SOURCE NASAL SWAB
[2024-09-21 16:38] LABS: SARS-COV2 (COVID) ANTIGEN,FIA Negative (Negative)
[2024-09-21 19:10] VITALS: O2SAT 97
[2024-09-21 19:20] LABS: APPEARANCE,URINE CLEAR (CLEAR); BILIRUBIN,URINE NEGATIVE (NEGATIVE); COLOR,URINE LIGHT YELLOW (YELLOW); GLUCOSE, URINE (UA) 150-200 mg/dL (NEGATIVE); KETONES,URINE NEGATIVE (NEGATIVE); LEUKOCYTE ESTERASE ,URINE NEGATIVE (NEGATIVE); NITRATE,URINE NEGATIVE (NEGATIVE); OCCULT BLOOD,URINE NEGATIVE (NEGATIVE); PH,URINE 6.5 (5.0-8.0); PROTEIN,URINE NEGATIVE (NEGATIVE); SPECIFIC GRAVITIY, URINE 1.017 (1.003-1.030); UROBILINOGEN,URINE <=1.0 mg/dL (<=1.0)
[2024-09-21 19:30] LABS: BACTERIA,URINE None Seen /HPF (None Seen); RBC,URINE 0-2 /HPF (0-2); SQUAMOUS EPITHELIAL CELL,UR Rare /LPF (None Seen); WBC,URINE 0-2 /HPF (0-5)
[2024-09-21 21:25] VITALS: BP 133/82; PULSE 88; RESP 18; TEMP 97.3; O2SAT 96
[2024-09-21] MEDS ORDERED: ONDANSETRON 4 MG TABLET PO PRN (22:30)
[2024-09-21] MEDS ORDERED: CloNIDine HCL 0.1 MG TABLET PO PRN (22:30)
[2024-09-21] MEDS ORDERED: IBUPROFEN 600 MG TABLET PO PRN (22:30)
[2024-09-21] MEDS ORDERED: BACITRACIN 28 GM OINTMENT TP PRN (22:30)
[2024-09-21] MEDS ORDERED: PETROLATUM,WHITE 28 GM JELLY TP PRN (22:30)
[2024-09-21] MEDS ORDERED: DOCUSATE SODIUM 100 MG CAPSULE PO PRN (22:30)
[2024-09-21] MEDS ORDERED: BENZOCAINE/MENTHOL LOZENGE PO PRN (22:30)
[2024-09-21] MEDS ORDERED: ACETAMINOPHEN 325 MG TABLET PO PRN (22:30)
[2024-09-21] MEDS ORDERED: OMEPRAZOLE 20 MG CAPSULE PO PRN (22:30)
[2024-09-21] MEDS ORDERED: MAG HYDROX/ALUMINUM HYD/SIMETH ES 30 ML SUSPENSION UDCUP PO PRN (22:30)
[2024-09-21] MEDS ORDERED: MAGNESIUM HYDROXIDE SUSPENSION 30 ML UDCUP PO PRN (22:30)
[2024-09-21] MEDS ORDERED: ALBUTEROL SULFATE HFA 90 MCG/PUFF 8 GM INHALER IH PRN (22:30)
[2024-09-21] MEDS ORDERED: LOPERAMIDE HCL 2 MG CAPSULE PO PRN (22:30)
[2024-09-21] MEDS ORDERED: PNEUMOCOCCAL VACCINE POLYVALENT 0.5 ML SYRINGE [PPSV23] IM. ONE (23:45)
[2024-09-21] MEDS ORDERED: INFLUENZA VIRUS VACCINE TVS (6MO+) 2024-25/PF 45 MCG/0.5 ML SYRINGE IM. ONE (23:45)
[2024-09-22 07:45] LABS: CHOL/HDL RATIO 1.9 (4.2-7.3)
[2024-09-22 07:51] LABS: HEMOGLOBIN A1C 5.7 % (3.8-5.6)
[2024-09-22 08:02] VITALS: BP 133/71; PULSE 65; RESP 17; TEMP 97.7; O2SAT 97
[2024-09-22] MEDS ORDERED: ONDANSETRON 4 MG TABLET PO PRN (08:15)
[2024-09-22] MEDS ORDERED: BACITRACIN 28 GM OINTMENT TP PRN (08:15)
[2024-09-22] MEDS ORDERED: PETROLATUM,WHITE 28 GM JELLY TP PRN (08:15)
[2024-09-22] MEDS ORDERED: CloNIDine HCL 0.1 MG TABLET PO PRN (08:15)
[2024-09-22] MEDS ORDERED: ACETAMINOPHEN 325 MG TABLET PO PRN (08:15)
[2024-09-22] MEDS ORDERED: MAG HYDROX/ALUMINUM HYD/SIMETH ES 30 ML SUSPENSION UDCUP PO PRN (08:15)
[2024-09-22] MEDS ORDERED: MAGNESIUM HYDROXIDE SUSPENSION 30 ML UDCUP PO PRN (08:15)
[2024-09-22] MEDS ORDERED: OMEPRAZOLE 20 MG CAPSULE PO PRN (08:15)
[2024-09-22] MEDS ORDERED: ALBUTEROL SULFATE HFA 90 MCG/PUFF 8 GM INHALER IH PRN (08:15)
[2024-09-22] MEDS ORDERED: LOPERAMIDE HCL 2 MG CAPSULE PO PRN (08:15)
[2024-09-22] MEDS ORDERED: DOCUSATE SODIUM 100 MG CAPSULE PO PRN (08:15)
[2024-09-22] MEDS ORDERED: BENZOCAINE/MENTHOL LOZENGE PO PRN (08:15)
[2024-09-22] MEDS ORDERED: IBUPROFEN 600 MG TABLET PO PRN (08:15)
[2024-09-22] MEDS: OLANZapine 10 MG TABLET PO SCH (17:05)
[2024-09-22 21:06] VITALS: BP 119/95; PULSE 72; RESP 18; TEMP 97.1; O2SAT 96
[2024-09-22] MEDS: ZOLPIDEM TARTRATE 10 MG TABLET PO PRN (22:50)
[2024-09-23 08:12] LABS: CHLORIDE 94 mmol/L (98-107); POTASSIUM 4.9 mmol/L (3.5-5.1); SODIUM SERUM 129 mmol/L (136-145)
[2024-09-23 08:13] LABS: ANION GAP 2 mmol/L (8-16); CARBON DIOXIDE 33 mmol/L (22-29); CREATININE 0.73 mg/dL (0.60-1.30); GLOMERULAR FILTR. RATE CALC > 60 mL/min (>60); GLUCOSE,RANDOM 85 mg/dL (70-110); UREA NITROGEN, BLOOD 15 mg/dL (7-18)
[2024-09-23 08:32] VITALS: BP 166/71; PULSE 64; RESP 17; TEMP 97.4; O2SAT 97
[2024-09-23 08:32] LABS: THYROID STIMULATING HORMONE 151.31 uIU/mL (0.36-3.74)
[2024-09-23 20:12] VITALS: BP 136/77; PULSE 74; RESP 18; TEMP 97.9; O2SAT 98
[2024-09-24 09:00] VITALS: BP 137/65; PULSE 76; RESP 17; TEMP 98; O2SAT 97
[2024-09-25] MEDS: LEVOTHYROXINE SODIUM 50 MCG TABLET PO SCH (06:26)
[2024-09-25 08:30] VITALS: BP 154/80; PULSE 67; RESP 18; TEMP 97.9; O2SAT 96
[2024-09-25 21:14] VITALS: BP 135/71; PULSE 65; RESP 16; TEMP 97; O2SAT 97
[2024-09-26 13:04] VITALS: BP 151/85; PULSE 68; RESP 18; TEMP 97.3; O2SAT 97
[2024-09-27 09:03] VITALS: BP 147/61; PULSE 69; RESP 17; TEMP 97.5; O2SAT 98
[2024-09-27] MEDS ORDERED: OLANZapine 10 MG TABLET PO SCH (21:00)
[2024-09-27] MEDS: HALOPERIDOL LACTATE 10 MG/5 ML SOLUTION UDCUP PO SCH (21:27)
[2024-09-27 21:30] VITALS: BP 125/69; PULSE 61; RESP 18; TEMP 97.7; O2SAT 97
[2024-09-28 09:04] VITALS: BP 132/73; PULSE 62; RESP 16; TEMP 96.9; O2SAT 92
[2024-09-28 20:09] VITALS: BP 156/83; PULSE 77; RESP 20; TEMP 97.3; O2SAT 97
[2024-09-29 08:55] VITALS: BP 146/87; PULSE 68; RESP 18; TEMP 99.2; O2SAT 98
[2024-09-29] MEDS: HALOPERIDOL LACTATE 5 MG/ML VIAL IM PRN (21:42)
[2024-09-29 23:00] VITALS: BP 150/74; PULSE 74; RESP 18; TEMP 98.2; O2SAT 97
[2024-09-30 21:10] VITALS: BP 142/83; PULSE 72; RESP 18; TEMP 97.8
[2024-10-01 09:28] VITALS: BP 106/62; PULSE 66; RESP 17; TEMP 97.5; O2SAT 98
[2024-10-01 20:09] VITALS: RESP 18
[2024-10-02 09:24] VITALS: BP 128/82; PULSE 66; RESP 18; TEMP 97.8; O2SAT 100
[2024-10-02 21:00] VITALS: TEMP 97
[2024-10-03 10:32] VITALS: BP 147/78; PULSE 71; RESP 19; TEMP 97; O2SAT 96
[2024-10-03 20:24] VITALS: RESP 18
[2024-10-04] MEDS: MULTIVITAMINS WITH MINERALS, THERAPEUTIC TABLET PO SCH (08:08)
[2024-10-04 10:37] VITALS: PULSE 69; RESP 17; TEMP 97.4; O2SAT 98
[2024-10-04 21:21] VITALS: RESP 18
[2024-10-05 08:03] VITALS: BP 143/74; PULSE 71; RESP 18; TEMP 97.7; O2SAT 96
[2024-10-05] MEDS ORDERED: HALO2ORA11 PO (13:01)
[2024-10-05] MEDS ORDERED: LEVO50TA11 PO (13:02)
== END 2024-10-05 16:31 | DRG 885 ==
LOC: EMS 11:39 → 3EC 21:27
PROVIDERS: ADMIT Psychiatry & Neurology Psychiatry; ATTEND Psychiatry & Neurology Psychiatry
DX: F20.9 Schizophrenia, unspecified (principal); E87.1 Hypo-osmolality and hyponatremia; F41.9 Anxiety disorder, unspecified; G47.00 Insomnia, unspecified; K59.00 Constipation, unspecified; Z20.822 Contact with and (suspected) exposure to COVID-19; I10 Essential (primary) hypertension; G40.909 Epilepsy, unspecified, not intractable, without status epilepticus; R13.10 Dysphagia, unspecified; J44.9 Chronic obstructive pulmonary disease, unspecified; F31.9 Bipolar disorder, unspecified; K21.9 Gastro-esophageal reflux disease without esophagitis; Z87.891 Personal history of nicotine dependence; Z91.128 Patient's intentional underdosing of medication regimen for other reason
CPT/HCPCS: 71046; 80048; 80061; 80307; 81001; 83036; 84443; 85025; 87081; 87481; 92610; 99285; G0480; J1630; 36415-L1; 36415-TC

== ENCOUNTER 2025-01-14 14:25 | Inpatient (IN) | payer MEDICARE, MEDICAID ==
[~2025-01-14] VITALS: Ht 165.1 cm; Wt 61.7 kg
[~2025-01-14 14:25] MED LIST changes: -ACET-2247 PO; -BENZ-227 PO; -BISM-157 PO; -CHOL25TA4 PO; -CLON0.5T4 PO; -FAMO20 PO; +HALO2ORA11 PO; -HEPA500018 SQ; -LACT10SO10 PO; -LEVO25TA9 PO; +LEVO50TA11 PO; -LISI10TA24 PO; -LITH450T25 PO; -LUMA42CA PO; -MAGN-169 PO; -OLAN20TA20 PO; -OLAN7.5T22 PO; -QUET25TA36 PO; -VALP250S27 PO
[2025-01-14 17:25] LABS: BASOPHILS % (AUTO) 0.4 % (0.0-2.0); EOSINOPHILS % (AUTO) 3.5 % (1.0-6.0); HEMATOCRIT 37.1 % (41-53); HEMOGLOBIN 12.4 g/dL (13.5-17.5); LYMPHOCYTES # (AUTO) 1.3 K/uL (1.0-4.8); MEAN CORPUSCULAR HEMOGLOBIN 31.3 pg (26.0-34.0); MEAN CORPUSCULAR HGB CONC 33.4 G/dL (31.0-37.0); MEAN CORPUSCULAR VOLUME 94 fL (80-100); MONOCYTES # (AUTO) 0.8 K/uL (0.1-1.0); MONOCYTES % (AUTO) 8.9 % (2.0-9.0); NEUTROPHILS % (AUTO) 73.2 % (40.0-70.0); PLATELET COUNT (AUTO) 413 K/uL (150-450); RED BLOOD CELL COUNT(AUTO) 3.96 MIL/uL (4.50-5.90); RED CELL DISTRIBUTION WIDTH 14.2 % (11.5-14.5); WHITE BLOOD COUNT (AUTO) 9.5 K/uL (4.5-11.0)
[2025-01-14 17:26] LABS: ANION GAP 0 mmol/L (8-16); CALCIUM, TOTAL 8.9 mg/dL (8.8-10.5); CARBON DIOXIDE 29 mmol/L (22-29); CHLORIDE 96 mmol/L (98-107); CREATININE 0.72 mg/dL (0.60-1.30); GLOMERULAR FILTR. RATE CALC > 60 mL/min (>60); GLUCOSE,RANDOM 100 mg/dL (70-110); POTASSIUM 4.6 mmol/L (3.5-5.1); SODIUM SERUM 125 mmol/L (136-145); UREA NITROGEN, BLOOD 18 mg/dL (7-18)
[2025-01-14 17:34] LABS: ALCOHOL, BLOOD (SERUM) < 3 mg/dL (0-10)
[2025-01-14 17:53] LABS: APPEARANCE,URINE CLEAR (CLEAR); BILIRUBIN,URINE NEGATIVE (NEGATIVE); COLOR,URINE LIGHT YELLOW (YELLOW); GLUCOSE, URINE (UA) NEGATIVE (NEGATIVE); KETONES,URINE NEGATIVE (NEGATIVE); LEUKOCYTE ESTERASE ,URINE NEGATIVE (NEGATIVE); NITRATE,URINE NEGATIVE (NEGATIVE); OCCULT BLOOD,URINE NEGATIVE (NEGATIVE); PROTEIN,URINE NEGATIVE (NEGATIVE); SPECIFIC GRAVITIY, URINE 1.014 (1.003-1.030); UROBILINOGEN,URINE <=1.0 mg/dL (<=1.0)
[2025-01-14 18:00] LABS: AMPHET/METH SCREEN,URINE NEGATIVE (NEGATIVE); BARBITURATE SCREEN, URINE NEGATIVE (NEGATIVE); BENZODIAZEPINES SCREEN,URINE NEGATIVE (NEGATIVE); CANNABINOID SCREEN,URINE NEGATIVE (NEGATIVE); COCAINE SCREEN,URINE NEGATIVE (NEGATIVE); METHADONE SCREEN, URINE NEGATIVE (NEGATIVE); OPIATE SCREEN,URINE NEGATIVE (NEGATIVE); PHENCYCLIDINE SCREEN,URINE NEGATIVE (NEGATIVE)
[2025-01-14] MEDS ORDERED: LORazepam 2 MG TABLET PO PRN (18:00)
[2025-01-14] MEDS ORDERED: ZOLPIDEM TARTRATE 10 MG TABLET PO PRN (18:00)
[2025-01-14 18:01] LABS: ALCOHOL, URINE DRUG SCREEN NEGATIVE (NEGATIVE)
[2025-01-14] MEDS: LORazepam 2 MG/ML VIAL IM ONE (18:46)
[2025-01-14] MEDS: DiphenhydrAMINE HCL 50 MG/ML VIAL IM ONE (18:46)
[2025-01-14] MEDS: HALOPERIDOL LACTATE 5 MG/ML VIAL IM ONE (18:46)
[2025-01-14 18:52] LABS: COVID AG,FIA SOURCE NASAL SWAB
[2025-01-14 19:12] LABS: SARS-COV2 (COVID) ANTIGEN,FIA Negative (Negative)
[2025-01-14] MEDS: SODIUM CHLORIDE 1 GM TABLET PO ONE (19:55)
[2025-01-14] MEDS: HALOPERIDOL 5 MG TABLET PO PRN (19:55)
[2025-01-15] VITALS (12 sets, daily range): BP systolic 121–162; BP diastolic 72–94; PULSE 60–97; RESP 17–18; TEMP 96.4–97.7; O2SAT 93–98
[2025-01-15] MEDS ORDERED: INFLUENZA VIRUS VACCINE TVS (6MO+) 2024-25/PF 45 MCG/0.5 ML SYRINGE IM. ONE (02:45)
[2025-01-15] MEDS: LEVOTHYROXINE SODIUM 50 MCG TABLET PO SCH (06:31)
[2025-01-15] MEDS ORDERED: MAG HYDROX/ALUMINUM HYD/SIMETH ES 30 ML SUSPENSION UDCUP PO PRN (07:00)
[2025-01-15] MEDS ORDERED: ONDANSETRON 4 MG TABLET PO PRN (07:00)
[2025-01-15] MEDS ORDERED: IBUPROFEN 400 MG TABLET PO PRN (07:00)
[2025-01-15] MEDS ORDERED: DOCUSATE SODIUM 100 MG CAPSULE PO PRN (07:00)
[2025-01-15] MEDS ORDERED: ACETAMINOPHEN 325 MG TABLET PO PRN (07:00)
[2025-01-15] MEDS ORDERED: GuaiFENesin/D-METHORPHAN [SUGAR-FREE] 200-20MG/10 ML SYRUP UDCUP PO PRN (07:00)
[2025-01-15] MEDS ORDERED: ALBUTEROL SULFATE HFA 90 MCG/PUFF 8 GM INHALER IH PRN (07:00)
[2025-01-15] MEDS ORDERED: NICOTINE 14 MG/24 HOUR PATCH TD PRN (07:00)
[2025-01-15] MEDS ORDERED: LOPERAMIDE HCL 2 MG CAPSULE PO PRN (07:00)
[2025-01-15] MEDS ORDERED: PETROLATUM,WHITE 28 GM JELLY TP PRN (07:00)
[2025-01-15] MEDS ORDERED: CloNIDine HCL 0.1 MG TABLET PO PRN (07:00)
[2025-01-15] MEDS: MULTIVITAMINS WITH MINERALS, THERAPEUTIC TABLET PO SCH (09:06)
[2025-01-15] MEDS: SODIUM CHLORIDE 1 GM TABLET PO SCH (09:06)
[2025-01-15] MEDS: MAGNESIUM HYDROXIDE SUSPENSION 30 ML UDCUP PO PRN (16:00)
[2025-01-15] MEDS: HALOPERIDOL 10 MG TABLET PO SCH (21:00)
[2025-01-16] MEDS ORDERED: LEVOTHYROXINE SODIUM 50 MCG TABLET PO SCH ×2 (06:30)
[2025-01-16 08:45] VITALS: BP 148/72; PULSE 72; RESP 18; TEMP 97.3; O2SAT 98
[2025-01-16 22:04] VITALS: BP 155/80; PULSE 76; RESP 16; TEMP 98.2; O2SAT 96
[2025-01-16 22:06] VITALS: RESP 16
[2025-01-17 08:45] VITALS: BP 129/70; PULSE 70; RESP 16; TEMP 97.7; O2SAT 95
[2025-01-17 09:18] LABS: ANION GAP 8 mmol/L (8-16); CALCIUM, TOTAL 8.8 mg/dL (8.8-10.5); CARBON DIOXIDE 27 mmol/L (22-29); CHLORIDE 94 mmol/L (98-107); CHOLESTEROL 152 mg/dL (131-200); CREATININE 0.67 mg/dL (0.60-1.30); GLOMERULAR FILTR. RATE CALC > 60 mL/min (>60); GLUCOSE,RANDOM 124 mg/dL (70-110); HDL CHOLESTEROL 76 mg/dL (40-60); LDL CHOL (CALC.) 57 mg/dL (0-130); POTASSIUM 4.2 mmol/L (3.5-5.1); SODIUM SERUM 129 mmol/L (136-145); TRIGLYCERIDES 95 mg/dL (15-150); UREA NITROGEN, BLOOD 12 mg/dL (7-18)
[2025-01-17 10:03] LABS: THYROID STIMULATING HORMONE 105.93 uIU/mL (0.36-3.74)
[2025-01-17] MEDS ORDERED: HALOPERIDOL LACTATE 5 MG/ML VIAL IM PRN (11:00)
[2025-01-17 13:21] LABS: HEMOGLOBIN A1C 5.5 % (3.8-5.6)
[2025-01-17 20:16] VITALS: BP 162/71; PULSE 71; RESP 18; TEMP 97.3; O2SAT 95
[2025-01-17 23:41] VITALS: RESP 18
[2025-01-18] MEDS: LEVOTHYROXINE SODIUM 100 MCG TABLET PO SCH (06:30)
[2025-01-18 08:16] VITALS: BP 131/67; PULSE 70; RESP 17; TEMP 97.2; O2SAT 95
[2025-01-18 08:49] LABS: ANION GAP 6 mmol/L (8-16); CALCIUM, TOTAL 9.4 mg/dL (8.8-10.5); CARBON DIOXIDE 31 mmol/L (22-29); CHLORIDE 92 mmol/L (98-107); CREATININE 0.61 mg/dL (0.60-1.30); GLOMERULAR FILTR. RATE CALC > 60 mL/min (>60); GLUCOSE,RANDOM 83 mg/dL (70-110); POTASSIUM 4.5 mmol/L (3.5-5.1); SODIUM SERUM 129 mmol/L (136-145); UREA NITROGEN, BLOOD 12 mg/dL (7-18)
[2025-01-19 08:26] VITALS: BP 158/74; PULSE 68; RESP 18; TEMP 97.6; O2SAT 97
[2025-01-19 20:24] VITALS: BP 137/79; PULSE 67; RESP 17; TEMP 97.8; O2SAT 96
[2025-01-20 08:11] VITALS: BP 148/72; PULSE 75; RESP 18; TEMP 97.7; O2SAT 96
[2025-01-20 21:58] VITALS: BP 144/69; PULSE 60; RESP 20; TEMP 97.4; O2SAT 94
[2025-01-21 10:00] VITALS: BP 162/82; PULSE 75; RESP 18; TEMP 97.2; O2SAT 95
[2025-01-21 20:42] VITALS: BP 141/78; PULSE 71; RESP 18; TEMP 98.1; O2SAT 97
[2025-01-22 20:58] VITALS: BP 145/82; PULSE 77; RESP 18; TEMP 97.6; O2SAT 95
[2025-01-23 08:38] VITALS: RESP 19; TEMP 98; O2SAT 93
[2025-01-23 21:37] VITALS: BP 141/78; PULSE 75; RESP 18; TEMP 98.1; O2SAT 95
[2025-01-24 08:24] VITALS: BP 150/68; PULSE 73; RESP 18; TEMP 98.1; O2SAT 95
[2025-01-24] MEDS: PNEUMOCOCCAL VACCINE POLYVALENT 0.5 ML SYRINGE [PPSV23] IM. ONE (16:52)
[2025-01-24 20:11] VITALS: BP 141/77; PULSE 71; RESP 18; TEMP 97.9; O2SAT 95
[2025-01-25 08:00] VITALS: BP 138/88; PULSE 69; RESP 18; TEMP 97; O2SAT 100
[2025-01-25 20:08] VITALS: BP 140/98; PULSE 85; RESP 19; TEMP 97.8; O2SAT 95
[2025-01-26 20:11] VITALS: BP 155/87; PULSE 75; RESP 18; TEMP 97.9; O2SAT 100
[2025-01-27 08:22] VITALS: BP 137/71; PULSE 72; RESP 17; TEMP 97.3; O2SAT 96
[2025-01-27 20:30] VITALS: BP 161/81; PULSE 70; RESP 17; TEMP 97.2; O2SAT 94
[2025-01-28 08:21] VITALS: BP 139/60; PULSE 69; RESP 16; TEMP 97.6; O2SAT 96
[2025-01-28 20:37] VITALS: BP 152/69; PULSE 69; RESP 17; TEMP 97.9; O2SAT 96
[2025-01-28] MEDS: PARoxetine HCL 20 MG TABLET PO SCH (20:48)
[2025-01-29] VITALS (9 sets, daily range): BP systolic 130–188; BP diastolic 78–94; PULSE 57–91; RESP 17–18; TEMP 97–98.3; O2SAT 94–98
[2025-01-30 12:45] VITALS: BP 140/65; PULSE 67; RESP 18; TEMP 98.1; O2SAT 95
[2025-01-30] MEDS ORDERED: LEVO125T95 PO (13:46)
[2025-01-30] MEDS ORDERED: MULT-1303 PO (13:51)
[2025-01-30] MEDS ORDERED: HALO10TA21 PO (13:52)
[2025-01-30] MEDS ORDERED: PARO-38 PO (13:53)
[2025-01-30] MEDS ORDERED: SODI100067 PO (13:55)
== END 2025-01-30 16:45 | DRG 885 ==
LOC: EMS 14:25 → B2S 23:53 → B2X 01-16 20:08
PROVIDERS: ADMIT Psychiatry & Neurology Child & Adolescent Psychiatry; ATTEND Psychiatry & Neurology Child & Adolescent Psychiatry
PROC: GZ56ZZZ Individual Psychotherapy, Supportive (ICD-10-PCS; 2025-01-15)
PROC: GZ52ZZZ Individual Psychotherapy, Cognitive (ICD-10-PCS; 2025-01-16)
PROC: GZHZZZZ Group Psychotherapy (ICD-10-PCS; principal; 2025-01-19)
DX: F20.0 Paranoid schizophrenia (principal); E87.1 Hypo-osmolality and hyponatremia; J44.9 Chronic obstructive pulmonary disease, unspecified; Z20.822 Contact with and (suspected) exposure to COVID-19; I10 Essential (primary) hypertension; D64.9 Anemia, unspecified; E03.9 Hypothyroidism, unspecified; G40.909 Epilepsy, unspecified, not intractable, without status epilepticus; Z87.891 Personal history of nicotine dependence
CPT/HCPCS: 80048; 80061; 80307; 81003; 83036; 84443; 85025; 87081; 99291; G0480; J1200; J1630; J2060

== ENCOUNTER 2025-01-29 04:44 | Emergency (ER) | payer MEDICARE, MEDICAID ==
[~2025-01-29] VITALS: Ht 167.6 cm; Wt 62.0 kg
[2025-01-29 04:47] VITALS: TEMP 98
[2025-01-29 07:00] VITALS: BP 179/105; PULSE 62; RESP 16; O2SAT 100
[2025-01-30] MEDS ORDERED: LEVO125T95 PO (13:46)
[2025-01-30] MEDS ORDERED: MULT-1303 PO (13:51)
[2025-01-30] MEDS ORDERED: HALO10TA21 PO (13:52)
[2025-01-30] MEDS ORDERED: PARO-38 PO (13:53)
[2025-01-30] MEDS ORDERED: SODI100067 PO (13:55)
== END 2025-01-29 07:07 ==
LOC: EMS 04:44
DX: M25.511 Pain in right shoulder (principal); F17.210 Nicotine dependence, cigarettes, uncomplicated; F20.9 Schizophrenia, unspecified; G40.909 Epilepsy, unspecified, not intractable, without status epilepticus; G89.29 Other chronic pain; I10 Essential (primary) hypertension; J44.9 Chronic obstructive pulmonary disease, unspecified; F41.9 Anxiety disorder, unspecified; W19.XXXA Unspecified fall, initial encounter; Y93.89 Activity, other specified; Y92.89 Other specified places as the place of occurrence of the external cause; Y99.8 Other external cause status
CPT/HCPCS: 99283; 99406

== ENCOUNTER 2025-04-25 18:20 | Inpatient (IN) | payer MEDICARE, MEDICAID ==
[~2025-04-25] VITALS: Ht 172.7 cm; Wt 61.3 kg
[~2025-04-25 18:20] MED LIST changes: +HALO10TA21 PO; -HALO2ORA11 PO; +LEVO125T95 PO; -LEVO50TA11 PO; +MULT-1303 PO; -MULT-248 PO; +PARO-38 PO; +SODI100067 PO
[2025-04-25 21:12] LABS: COVID AG,FIA SOURCE NASAL SWAB
[2025-04-25 21:15] LABS: APPEARANCE,URINE HAZY (CLEAR); BILIRUBIN,URINE NEGATIVE (NEGATIVE); COLOR,URINE LIGHT YELLOW (YELLOW); GLUCOSE, URINE (UA) NEGATIVE (NEGATIVE); KETONES,URINE NEGATIVE (NEGATIVE); LEUKOCYTE ESTERASE ,URINE NEGATIVE (NEGATIVE); NITRATE,URINE NEGATIVE (NEGATIVE); OCCULT BLOOD,URINE NEGATIVE (NEGATIVE); PH,URINE 7.5 (5.0-8.0); PH,URINE DRUG SCREEN 7.5 (5.0-8.0); PROTEIN,URINE NEGATIVE (NEGATIVE); SPECIFIC GRAVITIY, URINE 1.011 (1.003-1.030); UROBILINOGEN,URINE <=1.0 mg/dL (<=1.0)
[2025-04-25 21:20] LABS: AMPHET/METH SCREEN,URINE NEGATIVE (NEGATIVE); BARBITURATE SCREEN, URINE NEGATIVE (NEGATIVE); BENZODIAZEPINES SCREEN,URINE NEGATIVE (NEGATIVE); CANNABINOID SCREEN,URINE NEGATIVE (NEGATIVE); COCAINE SCREEN,URINE NEGATIVE (NEGATIVE); METHADONE SCREEN, URINE NEGATIVE (NEGATIVE); OPIATE SCREEN,URINE NEGATIVE (NEGATIVE); PHENCYCLIDINE SCREEN,URINE NEGATIVE (NEGATIVE)
[2025-04-25 21:21] LABS: ALCOHOL, URINE DRUG SCREEN NEGATIVE (NEGATIVE)
[2025-04-25 21:29] LABS: SARS-COV2 (COVID) ANTIGEN,FIA Negative (Negative)
[2025-04-26] MEDS: DiphenhydrAMINE HCL 50 MG/ML VIAL IM ONE (00:15)
[2025-04-26] MEDS: LORazepam 2 MG/ML VIAL IM ONE (00:15)
[2025-04-26] MEDS: haloperidoL LACTATE 5 MG/ML VIAL IM ONE (00:15)
[2025-04-26 02:09] LABS: EOSINOPHILS % (AUTO) 7.2 % (1.0-6.0); HEMOGLOBIN 14.3 g/dL (13.5-17.5); LYMPHOCYTES # (AUTO) 1.4 K/uL (1.0-4.8); LYMPHOCYTES % (AUTO) 25.7 % (22.0-44.0); MEAN CORPUSCULAR HGB CONC 33.3 G/dL (31.0-37.0); MEAN CORPUSCULAR VOLUME 93 fL (80-100); MONOCYTES # (AUTO) 0.5 K/uL (0.1-1.0); MONOCYTES % (AUTO) 9.3 % (2.0-9.0); NEUTROPHILS # (AUTO) 3.1 K/uL (1.8-7.7); NEUTROPHILS % (AUTO) 56.8 % (40.0-70.0); PLATELET COUNT (AUTO) 316 K/uL (150-450); RED BLOOD CELL COUNT(AUTO) 4.62 MIL/uL (4.50-5.90); RED CELL DISTRIBUTION WIDTH 13.9 % (11.5-14.5); WHITE BLOOD COUNT (AUTO) 5.5 K/uL (4.5-11.0)
[2025-04-26 02:26] LABS: ANION GAP 3 mmol/L (8-16); CALCIUM, TOTAL 9.2 mg/dL (8.8-10.5); CARBON DIOXIDE 30 mmol/L (22-29); CHLORIDE 93 mmol/L (98-107); CREATININE 0.66 mg/dL (0.60-1.30); GLOMERULAR FILTR. RATE CALC > 60 mL/min (>60); GLUCOSE,RANDOM 82 mg/dL (70-110); POTASSIUM 4.6 mmol/L (3.5-5.1); SODIUM SERUM 126 mmol/L (136-145); UREA NITROGEN, BLOOD 13 mg/dL (7-18)
[2025-04-26 12:26] VITALS: BP 160/87; RESP 18; TEMP 97.3; O2SAT 97
[2025-04-26] MEDS ORDERED: MAGN-169 PO (16:03)
[2025-04-26] MEDS ORDERED: MINE133E26 PR (16:03)
[2025-04-26] MEDS ORDERED: ACET-2247 PO (16:03)
[2025-04-26] MEDS ORDERED: MUPI1OIN5 TP (16:03)
[2025-04-26 17:27] VITALS: BP 155/97; PULSE 86; RESP 19; TEMP 97.7; O2SAT 97
[2025-04-26] MEDS ORDERED: MAGNESIUM HYDROXIDE SUSPENSION 30 ML UDCUP PO PRN (18:30)
[2025-04-26] MEDS ORDERED: MINERAL OIL 133 ML ENEMA PR PRN (18:30)
[2025-04-26 19:55] VITALS: BP 131/82; PULSE 80; RESP 20; TEMP 97.5; O2SAT 95
[2025-04-26] MEDS: HALOPERIDOL 10 MG PO SCH (21:55)
[2025-04-26] MEDS: PARoxetine HCL 20 MG TABLET PO SCH (21:55)
[2025-04-26] MEDS: SODIUM CHLORIDE 1 GM TABLET PO SCH (21:55)
[2025-04-27 03:55] VITALS: BP 139/80; PULSE 65; RESP 18; TEMP 97.5; O2SAT 99
[2025-04-27] MEDS: LEVOTHYROXINE SODIUM 100 MCG TABLET PO SCH (05:54)
[2025-04-27 08:14] VITALS: BP 168/93; PULSE 76
[2025-04-27] MEDS: MULTIVITAMINS WITH MINERALS, THERAPEUTIC TABLET PO SCH (08:26)
[2025-04-27] MEDS ORDERED: SODIUM CHLORIDE 1 GM TABLET PO SCH (09:00)
[2025-04-27 09:54] VITALS: BP 146/79; PULSE 78; RESP 18; TEMP 97.8; O2SAT 98
[2025-04-27 15:31] VITALS: BP 168/78; PULSE 66; RESP 18; TEMP 98.1; O2SAT 98
[2025-04-27] MEDS: HydrALAZINE HCL 20 MG/ML VIAL IVP PRN (16:36)
[2025-04-27 18:12] VITALS: BP 147/92; PULSE 78; O2SAT 97
[2025-04-27 19:56] VITALS: BP 138/73; PULSE 74; RESP 18; TEMP 97.5; O2SAT 94
[2025-04-27] MEDS: DIVALPROEX SODIUM 250 MG DR TABLET PO SCH (21:00)
[2025-04-28 04:10] VITALS: BP 147/82; PULSE 64; RESP 20; TEMP 97.7; O2SAT 95
[2025-04-28 08:01] VITALS: BP 154/88; PULSE 67; RESP 18; TEMP 97.7; O2SAT 96
[2025-04-28 16:00] VITALS: BP 139/74; PULSE 61; RESP 18; TEMP 97.7; O2SAT 97
[2025-04-28 19:26] VITALS: BP 140/70; PULSE 70; RESP 18; TEMP 98.2; O2SAT 94
[2025-04-28] MEDS: ETHYL ALCOHOL 62% ANTISEPTIC NASAL SANITIZER 0.6 ML AMPUL NASAL SCH (20:56)
[2025-04-29 05:09] VITALS: BP 150/77; PULSE 58; RESP 18; TEMP 98.1; O2SAT 97
[2025-04-29 08:00] VITALS: BP 139/76; PULSE 70; RESP 20; TEMP 97.9; O2SAT 98
[2025-04-29 16:30] VITALS: BP 132/76; PULSE 68; RESP 20; TEMP 97.3; O2SAT 99
[2025-04-29 19:22] VITALS: BP 150/85; PULSE 68; RESP 18; TEMP 98.2; O2SAT 96
[2025-04-30 04:15] VITALS: BP 142/79; PULSE 60; RESP 18; TEMP 98.1; O2SAT 97
[2025-04-30 21:30] VITALS: BP 167/85; PULSE 72; RESP 18; TEMP 97.3; O2SAT 95
[2025-05-01 06:25] VITALS: BP 175/91; PULSE 61; RESP 18; TEMP 97.1; O2SAT 96
[2025-05-01 07:32] VITALS: BP 165/77; PULSE 59; RESP 18; O2SAT 96
[2025-05-01 15:52] LABS: BASOPHILS % (AUTO) 0.9 % (0.0-2.0); EOSINOPHILS % (AUTO) 7.1 % (1.0-6.0); HEMATOCRIT 40.9 % (41-53); HEMOGLOBIN 13.6 g/dL (13.5-17.5); LYMPHOCYTES # (AUTO) 1.1 K/uL (1.0-4.8); LYMPHOCYTES % (AUTO) 19.8 % (22.0-44.0); MEAN CORPUSCULAR HEMOGLOBIN 30.9 pg (26.0-34.0); MEAN CORPUSCULAR HGB CONC 33.2 G/dL (31.0-37.0); MEAN CORPUSCULAR VOLUME 93 fL (80-100); MONOCYTES # (AUTO) 0.5 K/uL (0.1-1.0); MONOCYTES % (AUTO) 9.4 % (2.0-9.0); NEUTROPHILS # (AUTO) 3.4 K/uL (1.8-7.7); NEUTROPHILS % (AUTO) 62.8 % (40.0-70.0); PLATELET COUNT (AUTO) 347 K/uL (150-450); RED BLOOD CELL COUNT(AUTO) 4.39 MIL/uL (4.50-5.90); RED CELL DISTRIBUTION WIDTH 14.1 % (11.5-14.5); WHITE BLOOD COUNT (AUTO) 5.4 K/uL (4.5-11.0)
[2025-05-01 16:02] LABS: ANION GAP 1 mmol/L (8-16); CALCIUM, TOTAL 9.5 mg/dL (8.8-10.5); CARBON DIOXIDE 32 mmol/L (22-29); CHLORIDE 97 mmol/L (98-107); CREATININE 0.71 mg/dL (0.60-1.30); GLOMERULAR FILTR. RATE CALC > 60 mL/min (>60); GLUCOSE,RANDOM 88 mg/dL (70-110); SODIUM SERUM 130 mmol/L (136-145); UREA NITROGEN, BLOOD 15 mg/dL (7-18)
[2025-05-01 16:07] LABS: SODIUM SERUM 129 mmol/L (136-145)
[2025-05-01 16:08] LABS: VALPROIC ACID < 3 mcg/mL (50-100)
[2025-05-01 16:14] VITALS: BP 159/81; PULSE 74; RESP 18; TEMP 98.1; O2SAT 98
[2025-05-01] MEDS ORDERED: haloperidoL LACTATE 5 MG/ML VIAL IM PRN (16:30)
[2025-05-01 16:43] LABS: ALANINE AMINOTRANSFERASE 28 U/L (12-78); ALBUMIN 3.6 g/dL (3.4-5.0); ALKALINE PHOSPHATASE 110 U/L (46-116); ASPARTATE AMINOTRANSFERASE 33 U/L (15-37); FREE T4 (FREE THYROXINE) 0.39 ng/dL (0.76-1.46); TOTAL PROTEIN, SERUM 7.7 g/dL (6.4-8.2)
[2025-05-01 17:49] LABS: THYROID STIMULATING HORMONE 105.95 uIU/mL (0.36-3.74)
[2025-05-01 19:32] VITALS: BP 141/75; PULSE 66; RESP 18; TEMP 97.9; O2SAT 95
[2025-05-02] MEDS: LORazepam 2 MG/ML VIAL IVP ONE (00:18)
[2025-05-02] MEDS: haloperidoL LACTATE 5 MG/ML VIAL IM ONE (00:19)
[2025-05-02 04:26] VITALS: BP 141/81; PULSE 71; RESP 18; TEMP 97.9; O2SAT 96
[2025-05-02 08:02] VITALS: BP 156/92; PULSE 60; RESP 17; TEMP 97.5; O2SAT 97
[2025-05-02 16:24] VITALS: BP 153/85; PULSE 65; RESP 16; TEMP 97.6; O2SAT 97
[2025-05-02 19:30] VITALS: BP 133/75; PULSE 72; RESP 18; TEMP 97.5; O2SAT 95
[2025-05-03 05:15] VITALS: BP 148/81; PULSE 61; RESP 18; TEMP 97.9; O2SAT 95
[2025-05-03 07:29] VITALS: BP 169/93; PULSE 65; RESP 18; TEMP 97.6; O2SAT 95
[2025-05-03] MEDS: AmLODIPine BESYLATE 5 MG TABLET PO SCH (14:27)
[2025-05-03 16:57] VITALS: BP 159/94; PULSE 69; RESP 18; TEMP 97.6; O2SAT 98
[2025-05-03 20:45] VITALS: BP 147/86; PULSE 66; RESP 20; TEMP 98.1; O2SAT 96
[2025-05-04 04:30] VITALS: BP 144/85; PULSE 60; RESP 20; TEMP 97.5; O2SAT 95
[2025-05-04 08:53] VITALS: BP 139/72; PULSE 74; RESP 20; TEMP 97.5; O2SAT 97
[2025-05-04 17:47] VITALS: BP 172/86; PULSE 64; RESP 20; TEMP 98.2; O2SAT 95
[2025-05-04 19:30] VITALS: BP 151/79; PULSE 79; RESP 20; TEMP 98.4; O2SAT 94
[2025-05-05 05:45] VITALS: BP 149/87; PULSE 58; RESP 18; TEMP 97.5; O2SAT 97
[2025-05-05 08:13] VITALS: BP 147/89; PULSE 57; RESP 18; TEMP 97.5; O2SAT 96
== END 2025-05-05 16:05 | DRG 641 ==
LOC: EMS 18:22 → EDH 04-26 09:57 → 4E 04-26 12:10
PROVIDERS: ADMIT Hospitalist; ATTEND Hospitalist
PROC: GZ56ZZZ Individual Psychotherapy, Supportive (ICD-10-PCS; principal; 2025-04-27)
PROC: GZ58ZZZ Individual Psychotherapy, Cognitive-Behavioral (ICD-10-PCS; 2025-04-27)
DX: E87.1 Hypo-osmolality and hyponatremia (principal); F20.0 Paranoid schizophrenia; E03.9 Hypothyroidism, unspecified; J44.9 Chronic obstructive pulmonary disease, unspecified; I10 Essential (primary) hypertension; Z20.822 Contact with and (suspected) exposure to COVID-19; F41.9 Anxiety disorder, unspecified; G40.909 Epilepsy, unspecified, not intractable, without status epilepticus; F17.210 Nicotine dependence, cigarettes, uncomplicated; Z71.6 Tobacco abuse counseling; Z91.199 Patient's noncompliance with other medical treatment and regimen due to unspecified reason
CPT/HCPCS: 80048; 80053; 80164; 80307; 81003; 84295; 84439; 84443; 85025; 87081; 99285; G0378; G0480; J0360; J1200; J1630; J2060